=== PATIENT | female | born 2000 | race Caucasian/White ===

== ENCOUNTER 2023-07-07 15:45 | Outpatient (CLI) | payer BC ==
[2023-07-07 16:17] LABS: Appearance,Urine Clear (Clear); Bacteria,Urine Occasional /hpf; Bilirubin,Urine Negative (Negative); Blood,Urine Negative (Negative); Color,Urine Colorless; Glucose,Urine (UA) Negative (Negative); Ketones,Urine Negative (Negative); Leukocyte Esterase,Urine Moderate (Negative); Nitrite,Urine Negative (Negative); Protein,Urine Negative (Negative); RBC,Urine 2 /hpf (0-5); Specific Gravity,Urine 1.002 (1.001-1.035); Squamous Epithelial Cell,Urine 3 /hpf (0-4); Urobilinogen,Urine <2.0 mg/dL (<2.0); WBC,Urine 6 /hpf (0-5)
[2023-07-07 16:18] LABS: Basophils % (A) 0 %; Eosinophils # (A) 0.1 k/uL (0-0.7); Eosinophils % (A) 1 %; HCT 36.3 % (34.0-46.0); HGB 12.3 gm/dL (11.4-16.0); Lymphocytes # (A) 1.5 k/uL (1.0-4.8); Lymphocytes % (A) 13 %; MCH 32.8 pg (25.0-35.0); MCV 96.7 fL (80.0-100.0); Mean Platelet Volume 10.1; Monocytes # (A) 0.6 k/uL (0-1.0); Monocytes % (A) 5 %; Neutrophils # (A) 9.1 k/uL (1.3-7.7); Neutrophils % (A) 80 %; Platelet Count 185 k/uL (150-450); RBC 3.76 m/uL (3.80-5.40); RDW 12.4 % (11.5-15.5); WBC 11.4 k/uL (3.8-10.6)
[2023-07-07 16:39] LABS: ALT 22 U/L (4-34); AST 29 U/L (14-36); African American GFR (CKD) >90 (>60 ml/min/1.73 sqM); Blood Urea Nitrogen 8 mg/dL (7-17); LDH 234 U/L (120-246); Non-African American GFR(CKD) >90 (>60 ml/min/1.73 sqM); Uric Acid 3.4 mg/dL (3.7-7.4)
[2023-07-07 16:50] LABS: Protein/Creatinine Ratio,Urine 1.556
[2023-07-07 17:29] VITALS: BP 132/83; PULSE 99; RESP 16; TEMP 98.2
--- NOTE | 2023-07-08 06:37 | P.MSEPDOC ---
Presenting Problems - Arrival Data Date of Arrival on Unit: 07/07/23 Time of Arrival on Unit: 14:52 Mode of Transport: Ambulatory - Complaint OB-Reason for Admission/Chief Complaint: PIH Medical History - Information : 1 Para: 0 Number of Living Children: 0 - Gestational Age Gestational Age by STEPHEN (wks/days): 35 Weeks and 4 Days Review of Systems - Review of Systems Constitutional: No problems Breast: No problems ENT: No problems Cardiovascular: No problems Respiratory: No problems Gastrointestinal: No problems Genitourinary: No problems Musculoskeletal: No problems Neurological: No problems Skin: No problems Vital Signs - Temperature Temperature: 98.2 F Temperature Source: Oral - Pulse Right Sitting Brachial Pulse Rate: 99 Pulse Assessment Method: Automatic Cuff - Respirations Respiratory Rate: 16 Oxygen Delivery Method: Room Air O2 Sat by Pulse Oximetry: 99 - Blood Pressure Right Arm Sitting Blood Pressure: 132/83 Blood Pressure Mean: 99 Blood Pressure Source: Automatic Cuff Medical Screen Scoring - Cervical Exam Dilation (cm): 0 Effacement (%): 0 - Uterine Contractions Frequency From (mins): 5 Frequency To (mins): 8 Duration From (seconds): 30 Duration To (seconds): 40 Intensity: Mild Resting: Soft to palpation - Assessment - Baby A Baseline FHR: 45 Heart Rate - NICHD Category: Category I (Normal) NST: Reactive Physician Notification - Physician Notified Physician Notified Date: 07/07/23 Physician Notified Time: 17:15 Physician: Gorge Mayes Order Received: Yes (discharge) Maternal Triage Index - Maternal Triage Index Presenting for scheduled procedure w/no complaint: No - Stat/Priority 1 Stat Priority 1: No - Urgent/Priority 2 Urgent Priority 2: No - Prompt/Priority 3 Prompt Priority 3: Yes Criteria Met for Priority 3: pt reports elevated BP at home, contx Disposition - Disposition OB Disposition: Discharge to home Discharge Date: 07/07/23 Discharge Time: 17:19 I agree with the RN Medical Screening Exam: Yes Case reviewed; plan agreed upon as documented in EMR&OBIX.: Yes Diagnosis: RELATED CONDITIONS, UNSPECIFIED, THIRD TRIMESTER (Pt presented with concerns of elevated blood pressure at home. All blood pressures here were normal. Pre-eclampsia labs were normal, however had elevated P/C ratio that does not appear to be clinically significant. Will followup with Dr. Gifford this week for OB visit and discussion/further evaluation. )
== END 2023-07-07 17:20 | disposition home or self-care (01) ==
LOC: FBPOP 15:45
PROVIDERS: ATTEND Obstetrics & Gynecology
DX: O13.3 Gestational [pregnancy-induced] hypertension without significant proteinuria, third trimester (principal); Z3A.35 35 weeks gestation of pregnancy
CPT/HCPCS: 59025; 81001; 82565; 82570; 83615; 84156; 84450; 84460; 84520; 84550; 85025; 99205

== ENCOUNTER 2023-07-31 19:35 | Outpatient (CLI) | payer BC, OTHER ==
[2023-07-31 20:00] LABS: Appearance,Urine Clear (Clear); Bilirubin,Urine Negative (Negative); Blood,Urine Negative (Negative); Color,Urine Colorless; Glucose,Urine (UA) Negative (Negative); Ketones,Urine Negative (Negative); Leukocyte Esterase,Urine Negative (Negative); Nitrite,Urine Negative (Negative); PH, Urine 6.5 (5.0-8.0); Protein,Urine Negative (Negative); Specific Gravity,Urine 1.004 (1.001-1.035); Urobilinogen,Urine <2.0 mg/dL (<2.0)
[2023-07-31 20:15] LABS: Creatinine,Urine Random 20.8 mg/dL; Protein/Creatinine Ratio,Urine 0.625
[2023-07-31 20:28] LABS: Basophils % (A) 0 %; Eosinophils # (A) 0.1 k/uL (0-0.7); Eosinophils % (A) 1 %; HGB 12.6 gm/dL (11.4-16.0); Lymphocytes # (A) 1.5 k/uL (1.0-4.8); Lymphocytes % (A) 13 %; MCH 33.4 pg (25.0-35.0); MCHC 34.9 g/dL (31.0-37.0); MCV 95.7 fL (80.0-100.0); Mean Platelet Volume 9.8; Monocytes # (A) 0.5 k/uL (0-1.0); Monocytes % (A) 4 %; Neutrophils # (A) 9.4 k/uL (1.3-7.7); Neutrophils % (A) 81 %; Platelet Count 162 k/uL (150-450); RBC 3.76 m/uL (3.80-5.40); RDW 12.2 % (11.5-15.5); WBC 11.7 k/uL (3.8-10.6)
[2023-07-31 20:38] LABS: ALT 25 U/L (4-34); AST 32 U/L (14-36); African American GFR (CKD) >90 (>60 ml/min/1.73 sqM); Blood Urea Nitrogen 8 mg/dL (7-17); LDH 216 U/L (120-246); Non-African American GFR(CKD) >90 (>60 ml/min/1.73 sqM)
[2023-07-31 23:19] VITALS: BP 146/89; PULSE 123; RESP 16; TEMP 97.5
--- NOTE | 2023-08-01 02:53 | P.MSEPDOC ---
Presenting Problems - Arrival Data Date of Arrival on Unit: 07/31/23 Time of Arrival on Unit: 19:35 Mode of Transport: Ambulatory - Complaint OB-Reason for Admission/Chief Complaint: Headache, PIH Comment: pt. present to triage due to high blood pressure at home of 161/100 at 1900. headache rating 4/10 that started a couple hours ago, and mild nausea pt. hasn't taken anyhting for pain. Medical History - Information : 1 Para: 0 Term: 0 : 0 Abortions: Spontaneous or Elective: 0 Number of Living Children: 0 - Gestational Age Gestational Age by STEPHEN (wks/days): 39 Weeks and 0 Days Review of Systems - Review of Systems Constitutional: No problems Breast: No problems ENT: No problems Cardiovascular: No problems Respiratory: No problems Gastrointestinal: No problems Genitourinary: No problems Musculoskeletal: No problems Neurological: No problems Skin: No problems Vital Signs - Temperature Temperature: 97.5 F Temperature Source: Temporal Artery Scan - Pulse Pulse Oximetery Pulse Rate: 123 Pulse Assessment Method: Pulse Oximetry - Respirations Respiratory Rate: 16 Oxygen Delivery Method: Room Air O2 Sat by Pulse Oximetry: 100 - Blood Pressure Right Arm Blood Pressure: 146/89 Blood Pressure Mean: 108 Blood Pressure Source: Automatic Cuff Medical Screen Scoring - Cervical Exam Membranes: Intact - Uterine Contractions Frequency From (mins): 3 Frequency To (mins): 5 Duration From (seconds): 30 Duration To (seconds): 60 Intensity: Mild - Assessment - Baby A Baseline FHR: 130 Heart Rate - NICHD Category: Category I (Normal) NST: Reactive Physician Notification - Physician Notified Physician Notified Date: 07/31/23 Physician Notified Time: 20:54 Physician: Dr. Gifford New Order Received: Yes - Notification Comment Comment: labs reviewed, orders to discharge pt. home. Maternal Triage Index - Maternal Triage Index Presenting for scheduled procedure w/no complaint: No - Stat/Priority 1 Stat Priority 1: No - Urgent/Priority 2 Urgent Priority 2: Yes Provider Notified: Dr. Gifford Provider Notified Time: 20:01 Criteria Met for Priority 2: PIH labs ordered Disposition - Disposition OB Disposition: Discharge to home Discharge Date: 07/31/23 Discharge Time: 21:05 I agree with the RN Medical Screening Exam: Yes Physician's MSE Comment: Patient's blood pressures were normal other than her initial blood pressure on admission is triage was slightly elevated systolically. All of her labs are n ormal and her urine protein is negative however her protein to creatinine ratio is still elevated. Patient is scheduled for induction in less than 2 days. She is advised to try Tylenol or Benadryl for her headache. If symptoms worsen, she may return to triage. Case reviewed; plan agreed upon as documented in EMR&OBIX.: Yes Diagnosis: HEADACHE, UNSPECIFIED
== END 2023-07-31 21:05 | disposition home or self-care (01) ==
LOC: FBPOP 19:35
PROVIDERS: ATTEND Obstetrics & Gynecology
DX: O13.3 Gestational [pregnancy-induced] hypertension without significant proteinuria, third trimester (principal); Z3A.39 39 weeks gestation of pregnancy
CPT/HCPCS: 36415; 59025; 81003; 82565; 82570; 83615; 84156; 84450; 84460; 84520; 84550; 85025; 99215

== ENCOUNTER 2023-08-02 05:17 | Inpatient (IN) | payer BC, OTHER ==
--- NOTE | 2023-08-01 16:13 | P.HPOB ---
History of Present Illness H&P Date: 08/01/23 Chief Complaint: Induction of labor This is a 23 y.o. female, 1, para 0, with an estimated date of confinement of 08/07/2023, estimated gestational age of 39-2/7 weeks, who presents for induction of labor. She has had 2 instances of elevated blood pressure at home with headache, once on 07/07/2023 and most recently on 07/31/2023. Each time she has presented to triage, her blood pressures have been normal and labs have been normal other than elevated protein to creatinine ratios. Urine protein was negative. She has been getting regular surveillance since the 1st episode. She also has occasional nausea. Her latest ultrasound showed estimated weight of 5#15oz at 36 weeks. She also is complaining of irregular contractions and pressure. labs: Hemoglobin-12.7 Blood type-B+ Antibody screen-neg Rubella-immune Toxoplasma-neg RPR-NR HIV-NR Hepatitis C-NR Random glucose-78 Hepatitis B surface antigen-neg 1 hr. GTT-80 GBS-neg OB Hx: Data Security Administrator Hx: No hx STDs Social Hx: . Unemployed. Review of Systems Constitutional: Denies chills, Denies fever Eyes: denies blurred vision, denies pain Ears, nose, mouth and throat: Reports headache, Denies sore throat Cardiovascular: Denies chest pain, Denies shortness of breath Respiratory: Denies cough Gastrointestinal: Reports abdominal pain (irregular contractions), Reports heartburn Genitourinary: Reports pelvic pain, Reports Musculoskeletal: Reports low back pain Integumentary: Denies pruritus, Denies rash Neurological: Denies numbness, Denies weakness Psychiatric: Reports anxiety, Reports depression Past Medical History Past Medical History: GERD/Reflux History of Any Multi-Drug Resistant Organisms: None Reported Past Surgical History: No Surgical Hx Reported Past Anesthesia/Blood Transfusion Reactions: No Reported Reaction Past Psychological History: Anxiety, Depression Smoking Status: Never smoker Past Alcohol Use History: None Reported Past Drug Use History: None Reported - Past Family History Mother Family Medical History: Cancer (Skin), Hypertension Medications and Allergies Home Medications Medication Instructions Recorded Confirmed Type Pnv 11/Iron Fum/Folic Acid/Om3 1 tab PO DAILY 07/07/23 07/31/23 History [Wesnate Dha Softgel] Allergies Allergy/AdvReac Type Severity Reaction Status Date / Time No Known Allergies Allergy Verified 07/07/23 15:50 Exam Osteopathic Statement: *. No significant issues noted on an osteopathic structural exam other than those noted in the History and Physical/Consult. Gen: well developed, well-nourished gravid female in no acute distress HEENT: within normal limits Heart: regular rate and rhythm Lungs: clear to auscultation bilaterally Abdomen: , non-tender Cervix: 1.5 cm /50%/-2 heart tones: 140's by doppler Extremities: neg. Bryan's Assessment and Plan (1) 39 weeks gestation of Status: Acute Code(s): Z3A.39 - 39 WEEKS GESTATION OF SNOMED Code(s): 90174060 Plan: Proceed with oxytocin induction of labor. Expectant management. Epidural anesthesia if desired.
[2023-08-02] MEDS ORDERED: CARBOPROST TROMETHAMINE 250 MCG/ML 1 ML AMP IM PRN (05:27)
[2023-08-02] MEDS ORDERED: LIDOCAINE 0.5% (PF) 5 MG/ML (50 ML SDV) SQ PRN (05:27)
[2023-08-02] MEDS ORDERED: miSOPROStoL 200 MCG TAB PO PRN (05:27)
[2023-08-02] MEDS ORDERED: OXYTOCIN 10 UNIT/ML 1 ML VIAL IM PRN (05:27)
[2023-08-02] MEDS ORDERED: TERBUTALINE 1 MG/ML VIAL SQ PRN (05:27)
[2023-08-02] MEDS ORDERED: OXYTOCIN 30 UNITS/500 ML NS 30 UNIT in SALINE 1 500ML.BAG IV SCH ×2 (05:27→14:30)
[2023-08-02] MEDS ORDERED: LIDOCAINE 1% (10MG/ML) FOR IV START INTRADERMA PRN (05:27)
[2023-08-02] MEDS ORDERED: METHYLERGONOVINE 0.2 MG/ML 1 ML AMP IM PRN (05:27)
[2023-08-02] MEDS ORDERED: TRANEXAMIC 1,000 MG/100ML-NACL 1,000 MG in EMPTY BAG 1 BAG IV PRN (05:27)
[2023-08-02 05:57] LABS: Basophils % (A) 0 %; Eosinophils # (A) 0.2 k/uL (0-0.7); Eosinophils % (A) 2 %; HCT 36.2 % (34.0-46.0); Lymphocytes # (A) 1.9 k/uL (1.0-4.8); Lymphocytes % (A) 22 %; MCH 34.3 pg (25.0-35.0); MCV 95.4 fL (80.0-100.0); Monocytes # (A) 0.5 k/uL (0-1.0); Monocytes % (A) 6 %; Neutrophils % (A) 69 %; Platelet Count 164 k/uL (150-450); RBC 3.79 m/uL (3.80-5.40); RDW 12.4 % (11.5-15.5); WBC 8.7 k/uL (3.8-10.6)
[2023-08-02 06:14] LABS: ALT 25 U/L (4-34); AST 32 U/L (14-36); African American GFR (CKD) >90 (>60 ml/min/1.73 sqM); Non-African American GFR(CKD) >90 (>60 ml/min/1.73 sqM); Uric Acid 4.8 mg/dL (3.7-7.4)
[2023-08-02] MEDS: LACTATED RINGERS 1,000 ML IV SCH ×3 (06:49→10:34)
[2023-08-02] MEDS ORDERED: ONDANSETRON 4 MG/2 ML VIAL IVP PRN (07:52)
[2023-08-02] MEDS ORDERED: NALBUPHINE 10 MG/ML (10 ML MDV) IV PRN (07:52)
[2023-08-02] MEDS ORDERED: diphenhydrAMINE 50 MG/ML 1 ML VIAL IVP PRN ×2 (14:27)
[2023-08-02] MEDS ORDERED: diphenhydrAMINE 50 MG CAP PO PRN (14:27)
[2023-08-02] MEDS ORDERED: SIMETHICONE 80 MG CHEWABLE PO PRN (14:27)
[2023-08-02] MEDS ORDERED: LANOLIN CREAM 5 GM TUBE TOPICAL PRN (14:27)
[2023-08-02] MEDS ORDERED: diphenhydrAMINE 25 MG CAP PO PRN (14:27)
[2023-08-02] MEDS ORDERED: BENZOCAINE/MENTHOL SPRAY 1 GM/SPRAY AEROSOL TOPICAL PRN ×2 (14:27→14:41)
[2023-08-02] MEDS ORDERED: ZOLPIDEM 5 MG TAB PO PRN (14:27)
[2023-08-02] MEDS ORDERED: HYDROCORTISONE 2.5% RECTAL CREAM 30 GM TUBE RECTAL PRN (14:27)
[2023-08-02] MEDS: IBUPROFEN 600 MG TAB PO PRN (16:35)
--- NOTE | 2023-08-02 18:06 | P.PROBDLV ---
Vaginal Delivery Note - . Vaginal Delivery Note: The patient progressed to complete dilation after oxytocin augmentation of labor and epidural anesthesia. Once reaching complete, she began pushing. She pushed for almost 2 hours and brought 's head to a crown. With one further push, the 's head delivered across the perineum followed by the anterior shoulder. Nose and mouth were bulb suctioned. With one further push, the remainder the infant easily delivered and was placed on mother's abdomen. Nose and mouth were bulb suctioned and cord was clamped and cut after waiting approximately 30 seconds for pulsation to finish. Infant was taken to warmer for evaluation. A viable female was noted with scores of 9 at 1 minute and 9 at 5 minutes and weight was 7 lbs. 4 oz. Placenta delivered shortly thereafter, intact, with a three-vessel cord. Uterus contracted fairly well after oxytocin was given and uterine massage was carried out. Inspection of the perineum revealed a second-degree with partial third-degree laceration. This area was anesthetized with 1% lidocaine and then sutured with 3-0 and 2-0 Vicryl suture in the usual multilayer fashion. Estimated blood loss is approximately 250 mL's. Mother and infant are in stable condition.
[2023-08-02 19:31] LABS: Basophils % (A) 0 %; Eosinophils # (A) 0.1 k/uL (0-0.7); Eosinophils % (A) 0 %; HCT 34.6 % (34.0-46.0); HGB 11.7 gm/dL (11.4-16.0); Lymphocytes # (A) 0.9 k/uL (1.0-4.8); Lymphocytes % (A) 6 %; MCH 32.6 pg (25.0-35.0); MCHC 33.7 g/dL (31.0-37.0); Monocytes # (A) 0.7 k/uL (0-1.0); Monocytes % (A) 5 %; Neutrophils # (A) 14.5 k/uL (1.3-7.7); Neutrophils % (A) 88 %; Platelet Count 167 k/uL (150-450); RBC 3.57 m/uL (3.80-5.40); RDW 12.7 % (11.5-15.5); WBC 16.5 k/uL (3.8-10.6)
[2023-08-02] MEDS: ACETAMINOPHEN TAB 325 MG TAB PO PRN (21:55)
[2023-08-03] MEDS: ACETAMINOPHEN TAB 325 MG TAB PO PRN ×2 (05:15→21:53)
[2023-08-03] MEDS: SENNOSIDES-DOCUSATE SODIUM 1 EACH TAB PO SCH (08:44)
--- NOTE | 2023-08-03 08:44 | P.DS ---
Providers Date of admission: 08/02/23 05:17 Expected date of discharge: 08/03/23 Attending physician: Meera Gifford Primary care physician: Stated None - Discharge Diagnosis(es) (1) 39 weeks gestation of Current Visit: No Status: Acute Hospital Course: This is a 23-year-old female 1 para 0 at 39-2/7 weeks who presented for induction of labor however she did have spontaneous rupture membranes at approximately 3:45 AM prior to admission. She delivered a viable female infant with scores of 9 at 1 minute and 9 at 5 minutes and infant weight of 7 lbs. 4 oz. on 08/02/2023. course was initially complicated by a elevated pulse and slightly elevated blood pressure immediately following delivery however she did drink a lot of caffeine. This has resolved this morning. Denies any blurry vision or epigastric pain. She does have a mild headache in her frontal sinuses area. Her pain is fairly well controlled with ibuprofen. She is breast-feeding. Lochia is decreasing. Impression is status post vaginal delivery day #1. Plan is to discharge home later today. Routine instructions are given. She is advised to call the office if she has any further questions or concerns prior to her appointment time. She is counseled regarding signs and symptoms of preeclampsia and to call the office or come to hospital immediately if any symptoms occur. She is advised follow-up in the office in 6 weeks for check. She will be given a prescription for ibuprofen. She has a breast pump. Procedures: Oxytocin augmentation of labor. Spontaneous vaginal delivery of a viable female on 08/02/2023 Patient Condition at Discharge: Stable Plan - Discharge Summary New Discharge Prescriptions: New Ibuprofen [Motrin] 600 mg PO Q6HR PRN #60 tab PRN Reason: Mild Pain (Scale 1 To 3) Continue Pnv 11/Iron Fum/Folic Acid/Om3 [Wesnate Dha Softgel] 1 tab PO DAILY Discharge Medication List Pnv 11/Iron Fum/Folic Acid/Om3 [Wesnate Dha Softgel] 1 tab PO DAILY 07/07/23 [History] Ibuprofen [Motrin] 600 mg PO Q6HR PRN #60 tab 08/03/23 [Rx] Follow up Appointment(s)/Referral(s): Meera Gifford DO [Doctor of Osteopathic Medicine] - 1 Week (PP 09-11-2023 @11:30 Am) Activity/Diet/Wound Care/Special Instructions: Instructions 1. Do not begin any exercise program for 3 weeks. 2. Do not resume sexual relations for 3 weeks or longer if uncomfortable. 3. You may take tub baths or showers at any time. 4. You may use tampons if desired after 3 weeks. 5. Keep the area of episiotomy (stitches) clean and dry. 6. If you are not nursing, wear a good fitting, supportive bra during the day and limit fluid intake for at least 1 week to prevent breast engorgement. 7. Call the office, [phone], within the next week to make appointment for your 6 week checkup if it has not already been made. 8. Report any of the following occurrences to the doctor promptly: a. Heavy, excessive bleeding b. Chills, fever c. Burning or frequency of urination d. Pain or redness and breasts if nursing e. Increasing pain or swelling in episiotomy (stitches). In addition to the above instructions, the following additional should be followed: 1. No heavy lifting or straining (exercising) until after 6 week checkup. 2. Keep abdominal incision clean and dry: You may wear a dressing if more comfortable. 3. Make office appointment for 10 days after going home or as instructed by her doctor. Discharge Disposition: HOME SELF-CARE
[2023-08-03 09:28] LABS: Basophils % (A) 0 %; Eosinophils # (A) 0.1 k/uL (0-0.7); Eosinophils % (A) 1 %; HCT 33.9 % (34.0-46.0); HGB 11.6 gm/dL (11.4-16.0); Lymphocytes # (A) 1.6 k/uL (1.0-4.8); Lymphocytes % (A) 13 %; MCH 33.6 pg (25.0-35.0); MCHC 34.1 g/dL (31.0-37.0); MCV 98.4 fL (80.0-100.0); Mean Platelet Volume 10.1; Monocytes # (A) 0.6 k/uL (0-1.0); Monocytes % (A) 5 %; Neutrophils # (A) 9.9 k/uL (1.3-7.7); Neutrophils % (A) 80 %; Platelet Count 143 k/uL (150-450); RBC 3.44 m/uL (3.80-5.40); RDW 12.9 % (11.5-15.5); WBC 12.3 k/uL (3.8-10.6)
[2023-08-03] MEDS: IBUPROFEN 600 MG TAB PO PRN ×2 (11:00→16:17)
--- NOTE | 2023-08-03 12:55 | P.PN ---
Subjective Progress Note Date: 08/03/23 Principal diagnosis: Status post vaginal delivery day #1 Patient was up in the shower and started feeling some fluttering in her heart. Vitals were taken shortly after and her heart rate was up to 130. Blood pressure was also at 140/79. Approximately 15 minutes later, her blood pressure was back down to normal and her pulse was in the 90s. She has not had any ca ffeine today and thinks that she has a headache due to lack of caffeine. She states her headache is more in the front of her head. Her bleeding has still been minimal. She states she does feel some shortness of breath when the fluttering happens. Objective - Vital Signs Vital signs: Vital Signs Temp 98.7 F 08/03/23 08:00 Pulse 130 H 08/03/23 11:11 Resp 16 08/03/23 11:11 BP 140/79 08/03/23 11:11 Pulse Ox 99 08/02/23 05:26 FiO2 Intake & Output 08/02/23 08/03/23 08/03/23 18:59 06:59 18:59 Intake Total 3186.867 Output Total 630 Balance 2556.867 Intake: IV 3000 Intake, IV Titration 186.867 Amount Oxytocin 30 Units/500 ml 186.867 Ns 30 unit In Saline 1 500ml.bag @ Per Protocol IV .Q0M [facility] Rx#:[id number] Output: Urine 250 Output, Quantitative 380 Blood Loss Other: # Voids 1 2 - Cardiovascular Details: Occasional extra beat heard Rhythm: regular - Labs CBC & Chem 7: 08/03/23 08:05 08/02/23 05:38 Labs: Abnormal Lab Results - Last 24 Hours (Table) 08/02/23 08/03/23 Range/Units 19:18 08:05 WBC 16.5 H 12.3 H (3.8-10.6) k/uL RBC 3.57 L 3.44 L (3.80-5.40) m/uL Hct 33.9 L (34.0-46.0) % Plt Count 143 L (150-450) k/uL Neutrophils # 14.5 H 9.9 H (1.3-7.7) k/uL Lymphocytes # 0.9 L (1.0-4.8) k/uL Assessment and Plan Assessment: Status post vaginal delivery day #1 Occasional tachycardia, possibly vasovagal (1) 39 weeks gestation of Current Visit: No Status: Acute Code(s): Z3A.39 - 39 WEEKS GESTATION OF SNOMED Code(s): 03190536 Plan: We'll cancel discharged for today and observe overnight. We'll repeat labs in the morning. Patient will limit caffeine but drink a little bit to see if that will help with her headache.
[2023-08-03 20:30] VITALS: RESP 16
[2023-08-03] MEDS: LABETALOL 100 MG TAB PO SCH (21:46)
[2023-08-04 01:01] VITALS: TEMP 98
[2023-08-04] MEDS: SENNOSIDES-DOCUSATE SODIUM 1 EACH TAB PO SCH ×2 (05:13→08:35)
[2023-08-04] MEDS: IBUPROFEN 600 MG TAB PO PRN (05:30)
[2023-08-04 06:55] LABS: Basophils % (A) 0 %; Eosinophils # (A) 0.1 k/uL (0-0.7); Eosinophils % (A) 1 %; Lymphocytes # (A) 1.6 k/uL (1.0-4.8); Lymphocytes % (A) 16 %; MCH 34.6 pg (25.0-35.0); MCHC 34.9 g/dL (31.0-37.0); Mean Platelet Volume 9.4; Monocytes # (A) 0.4 k/uL (0-1.0); Monocytes % (A) 4 %; Neutrophils % (A) 77 %; Platelet Count 175 k/uL (150-450); RBC 2.43 m/uL (3.80-5.40); RDW 12.7 % (11.5-15.5); WBC 10.4 k/uL (3.8-10.6)
[2023-08-04 06:56] LABS: HGB 8.4 gm/dL (11.4-16.0)
[2023-08-04 07:16] LABS: Uric Acid 4.3 mg/dL (3.7-7.4)
[2023-08-04] MEDS: ACETAMINOPHEN TAB 325 MG TAB PO PRN (08:15)
[2023-08-04] MEDS: LABETALOL 100 MG TAB PO SCH (08:15)
[2023-08-04 09:48] VITALS: BP 135/81; PULSE 110
--- NOTE | 2023-08-04 10:58 | P.DS ---
Providers Date of admission: 08/02/23 05:17 Expected date of discharge: 08/04/23 Attending physician: Meera Gifford Primary care physician: Stated None - Discharge Diagnosis(es) (1) 39 weeks gestation of Current Visit: No Status: Acute Hospital Course: This is a 23-year-old female 1 para 0 at 39-2/7 weeks who presented with spontaneous rupture of membranes on 08/02/2003 by was scheduled for induction in a few hours anyway. Upon arrival she was found to be 3 cm. She underwent oxytocin augmentation of labor and artificial rupture membranes of a 4 bag. She did receive epidural anesthesia. She delivered vaginally a viable female with scores of 9 at 1 minute and 9 at 5 minutes and infant weight of 7 lbs. 4 oz. on 08/02/2023. She did have a partial third-degree tear. Her course was complicated by a few episodes of tachycardia into the 130s to 140s with mildly elevated blood pressures. She also did have a mild headache and still does have a mild headache. She also is complaining of some swelling in her lower extremities. Her blood work initially was showing minimal decrease in her hemoglobin however on day #2 her hemoglobin read 8.4. Her bleeding has still been very minimal. All other labs are essentially within normal limits. She is breast-feeding. Her lochia has actually been decreasing quite significantly. She was started on labetalol 100 mg twice a day last night when her blood pressures were noted to be in the 140s over 90s. This has improved her blood pressures. Patient would like to go home today. Vital signs are otherwise stable. Abdomen is soft with fundus firm and nontender. Perineum appears intact. Extremities show 1+ pitting edema in her feet. Impression is status post vaginal delivery day #2, gestational hypertension . Plan is to discharge home today. She will continue on labetalol 100 mg twice a day. She is advised follow-up in the office in approximately 1 week for a and postoperative check. She is advised to call the office or return to the hospital if any severe symptoms such as severe headache, blurry vision, epigastric pain, excessive bleeding. She has ibuprofen at home. She will continue to breast-feed. Routine instructions are given. Procedures: Oxytocin augmentation of labor Spontaneous vaginal delivery of a viable female on 08/02/2023 Patient Condition at Discharge: Stable Plan - Discharge Summary New Discharge Prescriptions: New Ibuprofen [Motrin] 600 mg PO Q6HR PRN #60 tab PRN Reason: Mild Pain (Scale 1 To 3) Labetalol [Trandate] 100 mg PO BID #28 tab Continue Pnv 11/Iron Fum/Folic Acid/Om3 [Wesnate Dha Softgel] 1 tab PO DAILY Discharge Medication List Pnv 11/Iron Fum/Folic Acid/Om3 [Wesnate Dha Softgel] 1 tab PO DAILY 07/07/23 [History] Ibuprofen [Motrin] 600 mg PO Q6HR PRN #60 tab 08/03/23 [Rx] Labetalol [Trandate] 100 mg PO BID #28 tab 08/04/23 [Rx] Follow up Appointment(s)/Referral(s): Meera Gifford DO [Doctor of Osteopathic Medicine] - 1 Week (PP 09-11-2023 @11:30 Am Call the office for 1 week blood pressure check appointment.) Activity/Diet/Wound Care/Special Instructions: Instructions 1. Do not begin any exercise program for 3 weeks. 2. Do not resume sexual relations for 3 weeks or longer if uncomfortable. 3. You may take tub baths or showers at any time. 4. You may use tampons if desired after 3 weeks. 5. Keep the area of episiotomy (stitches) clean and dry. 6. If you are not nursing, wear a good fitting, supportive bra during the day and limit fluid intake for at least 1 week to prevent breast engorgement. 7. Call the office, [phone], within the next week to make appointment for your 6 week checkup if it has not already been made. 8. Report any of the following occurrences to the doctor promptly: a. Heavy, excessive bleeding b. Chills, fever c. Burning or frequency of urination d. Pain or redness and breasts if nursing e. Increasing pain or swelling in episiotomy (stitches). In addition to the above instructions, the following additional should be followed: 1. No heavy lifting or straining (exercising) until after 6 week checkup. 2. Keep abdominal incision clean and dry: You may wear a dressing if more comfortable. 3. Make office appointment for 10 days after going home or as instructed by her doctor. Discharge Disposition: HOME SELF-CARE
== END 2023-08-04 12:02 | disposition home or self-care (01) | DRG 768 ==
LOC: 4FBP 05:17
PROVIDERS: ADMIT Obstetrics & Gynecology; ATTEND Obstetrics & Gynecology
PROC: 10E0XZZ Delivery of Products of Conception, External Approach (ICD-10-PCS; principal; 2023-08-02)
PROC: 0DQR0ZZ Repair Anal Sphincter, Open Approach (ICD-10-PCS; principal; 2023-08-02)
PROC: 3E033VJ Introduction of Other Hormone into Peripheral Vein, Percutaneous Approach (ICD-10-PCS; 2023-08-02)
DX: O70.20 Third degree perineal laceration during delivery, unspecified (principal); Z37.0 Single live birth; K21.9 Gastro-esophageal reflux disease without esophagitis; Z28.310 Unvaccinated for COVID-19; O13.5 Gestational [pregnancy-induced] hypertension without significant proteinuria, complicating the puerperium; O99.62 Diseases of the digestive system complicating childbirth; Z3A.39 39 weeks gestation of pregnancy; Z79.899 Other long term (current) drug therapy
CPT/HCPCS: 82565; 83615; 84450; 84460; 84550; 85025; 86850; 86900; 86901

== ENCOUNTER 2023-08-06 10:50 | Inpatient (IN) | payer BC, OTHER ==
[2023-08-06 12:17] LABS: ALT 52 U/L (4-34); AST 59 U/L (14-36); African American GFR (CKD) >90 (>60 ml/min/1.73 sqM); Blood Urea Nitrogen 11 mg/dL (7-17); LDH 320 U/L (120-246); Non-African American GFR(CKD) >90 (>60 ml/min/1.73 sqM); Uric Acid 4.9 mg/dL (3.7-7.4)
[2023-08-06 12:19] LABS: Creatinine,Urine Random 22.3 mg/dL; Protein/Creatinine Ratio,Urine 0.628
[2023-08-06 12:26] LABS: Basophils % (A) 0 %; Eosinophils # (A) 0.2 k/uL (0-0.7); Eosinophils % (A) 2 %; HCT 34.1 % (34.0-46.0); Lymphocytes # (A) 0.9 k/uL (1.0-4.8); Lymphocytes % (A) 9 %; MCH 33.2 pg (25.0-35.0); MCHC 33.7 g/dL (31.0-37.0); MCV 98.7 fL (80.0-100.0); Mean Platelet Volume 8.3; Monocytes # (A) 0.3 k/uL (0-1.0); Monocytes % (A) 3 %; Neutrophils # (A) 8.5 k/uL (1.3-7.7); Neutrophils % (A) 84 %; Platelet Count 220 k/uL (150-450); RBC 3.45 m/uL (3.80-5.40); RDW 12.8 % (11.5-15.5); WBC 10.1 k/uL (3.8-10.6)
[2023-08-06 12:31] LABS: HGB 11.5 gm/dL (11.4-16.0)
[2023-08-06] MEDS ORDERED: MAGNESIUM SULFATE-WATER PMX 4 GM in WATER FOR INJECTION 1 100ML.BAG IVPB ONE (12:42)
[2023-08-06 12:44] LABS: Appearance,Urine Clear (Clear); Bilirubin,Urine Negative (Negative); Color,Urine Light Yellow; Glucose,Urine (UA) Negative (Negative); Ketones,Urine Negative (Negative); PH, Urine 6.5 (5.0-8.0); Protein,Urine Negative (Negative); Specific Gravity,Urine 1.004 (1.001-1.035)
[2023-08-06 12:45] LABS: Blood,Urine Negative (Negative); Leukocyte Esterase,Urine Negative (Negative); Nitrite,Urine Negative (Negative); Urobilinogen,Urine <2.0 mg/dL (<2.0)
[2023-08-06] MEDS: LACTATED RINGERS 1,000 ML IV SCH (13:13)
[2023-08-06] MEDS: MAGNESIUM SULFATE-WATER PMX 20 GM in WATER FOR INJECTION 1 500ML.BAG IV SCH ×2 (13:43→22:10)
[2023-08-06] MEDS: IBUPROFEN 600 MG TAB PO PRN (14:40)
--- NOTE | 2023-08-06 17:40 | P.HPOB ---
History of Present Illness H&P Date: 08/06/23 Chief Complaint: Elevated blood pressure This is a 23-year-old female 1 para 1 who delivered vaginally on 08/02/2023. She was watched for 2 days . She did have some elevated pulse immediately after delivery and mildly elevated blood pressures on day #2. She was started on labetalol 100 mg twice a day but did control her blood pressures prior to discharge. She states a couple hours before she is due to have her medication she feels pressure in her head and some pulsation in her ears. She checked her blood pressure this morning and it was 167/76. She then took her blood pressure medication after that. She called the office and was advised to come to the hospital. She states she denies any new headaches but just the same dull ache in the back of her neck that she has had ever since she was in the hospital earlier. She denies any increased swelling. She denies any blurry vision or epigastric pain. Labs showed slightly elevated liver enzymes that were higher than when she was in the hospital earlier. Also her PC ratio was elevated at 0.628. Obstetrical history: . History of 1 vaginal delivery on 08/02/2023 Review of Systems Constitutional: Denies chills, Denies fever Eyes: denies blurred vision, denies pain Ears, nose, mouth and throat: Reports headache (Mild headache in the back of her neck.) Cardiovascular: Denies chest pain, Denies shortness of breath Respiratory: Denies cough Gastrointestinal: Denies abdominal pain, Denies diarrhea, Denies nausea, Denies vomiting Genitourinary: Denies abnormal vaginal bleeding, Denies dysuria, Denies Musculoskeletal: Denies myalgias Integumentary: Denies pruritus, Denies rash Neurological: Denies numbness, Denies weakness Psychiatric: Reports anxiety Endocrine: Reports palpitations (Occasional) Past Medical History Past Medical History: GERD/Reflux History of Any Multi-Drug Resistant Organisms: None Reported Past Surgical History: No Surgical Hx Reported Past Anesthesia/Blood Transfusion Reactions: No Reported Reaction Past Psychological History: Anxiety Smoking Status: Never smoker Past Alcohol Use History: None Reported Past Drug Use History: None Reported - Past Family History Mother Family Medical History: Cancer, Hypertension Medications and Allergies Home Medications Medication Instructions Recorded Confirmed Type Pnv 11/Iron Fum/Folic Acid/Om3 1 tab PO DAILY 07/07/23 08/06/23 History [Wesnate Dha Softgel] Ibuprofen [Motrin] 600 mg PO Q6HR PRN #60 tab 08/03/23 08/06/23 Rx Labetalol [Trandate] 100 mg PO BID #28 tab 08/04/23 08/06/23 Rx Allergies Allergy/AdvReac Type Severity Reaction Status Date / Time No Known Allergies Allergy Verified 07/07/23 15:50 Exam Osteopathic Statement: *. No significant issues noted on an osteopathic structural exam other than those noted in the History and Physical/Consult. Vital Signs Temp Pulse Resp BP Pulse Ox 08/06/23 17:21 100 16 145/91 100 08/06/23 16:27 103 H 16 131/84 100 08/06/23 15:22 100 16 140/87 100 08/06/23 14:27 104 H 16 150/95 99 08/06/23 13:57 98 16 145/96 99 08/06/23 13:27 104 H 16 152/94 08/06/23 13:15 97.5 F L 98 16 155/96 Intake and Output 08/06/23 08/06/23 08/06/23 06:59 14:59 22:59 Intake Total 125 465 Output Total 2049 Balance 125 -1585 Intake: Intake, IV Titration 125 225 Amount Lactated Ringers 1,000 ml 25 75 @ 20 mls/hr IV .Q24H [facility] Rx#:[id number] Magnesium Sulfate-Water 150 Pmx 20 gm In Water For Injection 1 500ml.bag @ 2 GM/HR 50 mls/hr IV .Q10H [facility] Rx#:[id number] Magnesium Sulfate-Water 100 Pmx 4 gm In Water For Injection 1 100ml.bag @ 300 mls/hr IVPB ONCE ONE Rx#:[id number] Oral 240 Output: Urine 2049 Other: # Voids 1 Weight 65.317 kg Gen.: Well-developed well-nourished female in no acute distress HEENT: Within normal limits Heart: Regular rate and rhythm Lungs: Clear to auscultation bilaterally Abdomen: Soft, fundus firm and nontender Extremities: Negative Homans, deep tendon reflexes are 3+ over 4 bilaterally Results Result Diagrams: 08/06/23 11:54 12/05/23 11:54 Abnormal Lab Results - Last 24 Hours (Table) 08/06/23 08/06/23 Range/Units 11:54 11:54 RBC 3.45 L (3.80-5.40) m/uL Neutrophils # 8.5 H (1.3-7.7) k/uL Lymphocytes # 0.9 L (1.0-4.8) k/uL AST 59 H (14-36) U/L ALT 52 H (4-34) U/L Lactate Dehydrogenase 320 H (120-246) U/L Assessment and Plan (1) Pre-eclampsia in period Current Visit: Yes Status: Acute Code(s): O14.95 - UNSPECIFIED PRE- ECLAMPSIA, COMPLICATING THE PUERPERIUM SNOMED Code(s): 968311749 Plan: Will admit for magnesium sulfate seizure prophylaxis. Will continue labetalol 100 mg twice a day. Patient will work on breast-feeding.
[2023-08-06] MEDS: FERROUS SULFATE 325 MG TAB PO SCH (19:04)
[2023-08-06] MEDS ORDERED: ACETAMINOPHEN TAB 500 MG TAB PO PRN (19:08)
[2023-08-06] MEDS: LABETALOL 100 MG TAB PO SCH (20:25)
[2023-08-06] MEDS: PRENATAL VIT-IRON-FOLIC ACID 1 EACH TABLET PO SCH (20:25)
[2023-08-07] MEDS: IBUPROFEN 600 MG TAB PO PRN ×3 (00:09→16:37)
[2023-08-07] MEDS: FERROUS SULFATE 325 MG TAB PO SCH ×2 (07:38→16:37)
[2023-08-07] MEDS: MAGNESIUM SULFATE-WATER PMX 20 GM in WATER FOR INJECTION 1 500ML.BAG IV SCH (07:46)
[2023-08-07] MEDS: LABETALOL 100 MG TAB PO SCH ×2 (09:13→20:53)
--- NOTE | 2023-08-07 09:31 | P.PN ---
Progress Note - Text Progress Note Date: 08/07/23 Patient states she does have some blurry vision on the magnesium. She denies any headache or epigastric pain. She states her bleeding has decreased. Her pain is fairly well controlled. She has been diuresing quite a bit. Vital signs are stable with blood pressures in normal range. Abdomen soft with fundus firm and nontender. Extremities show negative Homans. Impression is status post vaginal delivery day #5, preeclampsia-on magnesium sulfate seizure prophylaxis. Plan is to just continue magnesium sulfate at about noon today. We'll continue to monitor blood pressures until the evening. If stable, may be old be discharged home. If labile, may monitor through the night until morning.
[2023-08-07] MEDS: LACTATED RINGERS 1,000 ML IV SCH (13:02)
[2023-08-07] MEDS ORDERED: LABETALOL 100 MG TAB PO STA (17:15)
--- NOTE | 2023-08-07 17:23 | P.PN ---
Progress Note - Text Progress Note Date: 08/07/23 Patient states she did have a mild headache in the lower part of her neck this evening. She still has slight blurry vision after stopping the mag but much better than on the magnesium. She is anxious because she is worried that she won't be able to take care of her baby. She did recently take some Motrin. Her blood pressure is elevated at 150/99 currently. She is still urinating quite a bit. At a long discussion with the patient and her family and we have decided to continue monitoring blood pressures through the night tonight. I will give a dose of labetalol 100 mg now and then her second dose at 9 PM as scheduled. I will increase her morning dose to 200 mg twice a day. All of her questions were answered. We'll continue to observe tonight.
[2023-08-07] MEDS: SENNOSIDES-DOCUSATE SODIUM 1 EACH TAB PO SCH (21:00)
[2023-08-07] MEDS: PRENATAL VIT-IRON-FOLIC ACID 1 EACH TABLET PO SCH ×2 (22:09→23:51)
[2023-08-08] MEDS ORDERED: LABETALOL 200 MG TAB PO SCH (09:00)
[2023-08-08] MEDS: FERROUS SULFATE 325 MG TAB PO SCH (09:11)
[2023-08-08] MEDS: SENNOSIDES-DOCUSATE SODIUM 1 EACH TAB PO SCH (09:12)
--- NOTE | 2023-08-08 09:34 | P.DS ---
Providers Date of admission: 08/06/23 12:47 Expected date of discharge: 08/08/23 Attending physician: Meera Gifford Primary care physician: Stated None - Discharge Diagnosis(es) (1) Pre-eclampsia in period Current Visit: Yes Status: Acute Hospital Course: This is a 23-year-old female 1 para 1 who is status post vaginal delivery approximately 5 days on admission who presented with elevated blood pressures at home. She was already on labetalol 100 mg twice a day but started having blood pressures in the 160s over 100s. She also had a mild headache on arrival. She was started on magnesium sulfates seizure prophylaxis for 24 hours was discontinued. Was continued on labetalol 100 mg twice a day but this was increased to 200 mg twice a day last night. Her blood pressures have improved. She does also feel she is having some anxiety symptoms especially regarding breast-feeding. She denies any thoughts of harm to self or others. She has been on medication in the past for anxiety. She is willing to start something for this also. Her blood pressures were actually in the lower side through the night but up to 140/90 this morning. She will be continued on labetalol 200 mg twice a day on discharge. She will also be started on Zoloft 25 mg at bedtime for anxiety symptoms. She will follow up in the office on Saturday for a blood pressure check. Is advised to call the office if she has any further questions or concerns prior to her appointment time. Impression is gestational hypertension/preeclampsia and anxiety. Procedures: Magnesium sulfates seizure prophylaxis Patient Condition at Discharge: Stable Plan - Discharge Summary New Discharge Prescriptions: New Labetalol [Trandate] 200 mg PO BID tab Sertraline [Zoloft] 25 mg PO DAILY #30 tablet Continue Pnv 11/Iron Fum/Folic Acid/Om3 [Wesnate Dha Softgel] 1 tab PO DAILY Discontinued Labetalol [Trandate] 100 mg PO BID #28 tab No Action Ibuprofen [Motrin] 600 mg PO Q6HR PRN #60 tab PRN Reason: Mild Pain (Scale 1 To 3) Discharge Medication List Pnv 11/Iron Fum/Folic Acid/Om3 [Wesnate Dha Softgel] 1 tab PO DAILY 07/07/23 [History] Ibuprofen [Motrin] 600 mg PO Q6HR PRN #60 tab 08/03/23 [Rx] Labetalol [Trandate] 200 mg PO BID tab 08/08/23 [Rx] Sertraline [Zoloft] 25 mg PO DAILY #30 tablet 08/08/23 [Rx] Follow up Appointment(s)/Referral(s): Meera Gifford DO [Doctor of Osteopathic Medicine] - 08/12/23 Patient Instructions/Handouts: Preeclampsia and Eclampsia After Delivery (GEN) Activity/Diet/Wound Care/Special Instructions: Instructions 1. Do not begin any exercise program for 3 weeks. 2. Do not resume sexual relations for 3 weeks or longer if uncomfortable. 3. You may take tub baths or showers at any time. 4. You may use tampons if desired after 3 weeks. 5. Keep the area of episiotomy (stitches) clean and dry. 6. If you are not nursing, wear a good fitting, supportive bra during the day and limit fluid intake for at least 1 week to prevent breast engorgement. 7. Call the office, [phone], within the next week to make appointment for your 6 week checkup if it has not already been made. 8. Report any of the following occurrences to the doctor promptly: a. Heavy, excessive bleeding b. Chills, fever c. Burning or frequency of urination d. Pain or redness and breasts if nursing e. Increasing pain or swelling in episiotomy (stitches). In addition to the above instructions, the following additional should be followed: 1. No heavy lifting or straining (exercising) until after 6 week checkup. 2. Keep abdominal incision clean and dry: You may wear a dressing if more comfortable. 3. Make office appointment for 10 days after going home or as instructed by her doctor. Discharge Disposition: HOME SELF-CARE
[2023-08-08 09:49] VITALS: BP 146/93; PULSE 76; RESP 17; TEMP 98.4
== END 2023-08-08 10:30 | disposition home or self-care (01) | DRG 776 ==
LOC: FBPOP 10:50 → 4FBP 12:47
PROVIDERS: ADMIT Obstetrics & Gynecology; ATTEND Obstetrics & Gynecology
DX: O14.95 Unspecified pre-eclampsia, complicating the puerperium (principal); F41.9 Anxiety disorder, unspecified; O99.345 Other mental disorders complicating the puerperium; O99.63 Diseases of the digestive system complicating the puerperium; K21.9 Gastro-esophageal reflux disease without esophagitis
CPT/HCPCS: 81003; 82565; 82570; 83615; 84156; 84450; 84460; 84520; 84550; 85025; 99215

== ENCOUNTER 2024-03-12 18:43 | Emergency (ER) | payer BC, OTHER ==
[2024-03-12 19:01] VITALS: RESP 18; TEMP 98.8
[2024-03-12 19:42] LABS: Basophils % (A) 0 %; Eosinophils # (A) 0.1 k/uL (0-0.7); Eosinophils % (A) 1 %; HCT 41.7 % (34.0-46.0); HGB 13.8 gm/dL (11.4-16.0); Lymphocytes # (A) 1.1 k/uL (1.0-4.8); Lymphocytes % (A) 16 %; MCH 32.1 pg (25.0-35.0); MCV 97.3 fL (80.0-100.0); Mean Platelet Volume 8.3; Monocytes # (A) 0.3 k/uL (0-1.0); Monocytes % (A) 4 %; Neutrophils # (A) 5.4 k/uL (1.3-7.7); Neutrophils % (A) 78 %; Platelet Count 232 k/uL (150-450); RBC 4.29 m/uL (3.80-5.40); RDW 11.9 % (11.5-15.5); WBC 6.9 k/uL (3.8-10.6)
[2024-03-12 19:44] LABS: Appearance,Urine Clear (Clear); Bilirubin,Urine Negative (Negative); Blood,Urine Negative (Negative); Color,Urine Colorless; Glucose,Urine (UA) Negative (Negative); Ketones,Urine 2+ (Negative); Leukocyte Esterase,Urine Negative (Negative); Nitrite,Urine Negative (Negative); PH, Urine 5.5 (5.0-8.0); Protein,Urine Negative (Negative); Specific Gravity,Urine 1.009 (1.001-1.035); Urobilinogen,Urine <2.0 mg/dL (<2.0)
[2024-03-12 19:54] LABS: Amphetamine Screen,Urine Not Detected (NotDetected); Barbiturate Screen,Urine Not Detected (NotDetected); Benzodiazepines Screen,Urine Not Detected (NotDetected); Cocaine Screen,Urine Not Detected (NotDetected); Methadone Screen, Urine Not Detected (NotDetected); Opiate Screen,Urine Not Detected (NotDetected); Oxycodone Screen, Urine Not Detected (NotDetected); Phencyclidine Screen,Urine Not Detected (NotDetected); Tricyclic Antidepressant,Urine Not Detected (NotDetected); Urn Cannabinoid Scrn Not Detected (NotDetected)
--- NOTE | 2024-03-12 19:55 | XR ---
EXAMINATION TYPE: XR chest 2V DATE OF EXAM: 03/12/2024 7:45 PM CLINICAL INDICATION:Female, 23 years old with history of dysrhythmia; [facility] COMPARISON: None TECHNIQUE: XR chest 2V Frontal view of the chest. FINDINGS: Lungs/Pleura: There is no evidence of pleural effusion, focal consolidation, or pneumothorax. Pulmonary vascularity: Unremarkable. Heart/mediastinum: Cardiomediastinal silhouette is unremarkable. Musculoskeletal: No acute osseous pathology. Mild scoliosis changes. IMPRESSION: No acute cardiopulmonary disease/process.
[2024-03-12 19:56] LABS: INR 1.1 (<1.2); Partial Thromboplastin Time 25.8 sec (22.0-30.0); Prothrombin Time 11.6 sec (10.0-12.5)
[2024-03-12 19:59] LABS: ALT 13 U/L (4-34); AST 22 U/L (14-36); African American GFR (CKD) >90 (>60 ml/min/1.73 sqM); Albumin 4.8 g/dL (3.5-5.0); Alkaline Phosphatase 48 U/L (38-126); Anion Gap 10 mmol/L; Blood Urea Nitrogen 10 mg/dL (7-17); Calcium 9.6 mg/dL (8.4-10.2); Carbon Dioxide 20 mmol/L (22-30); Chloride 108 mmol/L (98-107); Glucose 100 mg/dL (74-99); Magnesium 2.1 mg/dL (1.6-2.3); Non-African American GFR(CKD) >90 (>60 ml/min/1.73 sqM); Potassium 3.8 mmol/L (3.5-5.1); Sodium 138 mmol/L (137-145); Total Protein 7.6 g/dL (6.3-8.2)
--- NOTE | 2024-03-12 20:18 | ED ---
Arrhythmia/Palpitations HPI - General Source: patient Mode of arrival: ambulatory Limitations: no limitations <Kendrick Arriola - Last Filed: 03/12/24 20:18> <Jonny Meza - Last Filed: 03/12/24 22:59> - General Chief Complaint: Arrhythmia/Palpitations Stated Complaint: rib pain, anxiety Time Seen by Provider: 03/12/24 20:18 - History of Present Illness Initial Comments: 23-year-old female presenting with chief complaint of palpitations. Symptoms started today. She has also been having some pain to the inferior border of the ribs and sternum. Denies injury or trauma. No lower extremity swelling, recent travel, or recent surgery. (Kendrick Arriola) 23-year-old female who is otherwise healthy presenting with chief complaint of palpitations racing heart sensation. She has minor chest discomfort right posterior chest. No previous history of CAD no history of DVT or PE. Patient not on blood thinners. She admits to being quite active today outside most of the day followed by a [place]. Uncertain if the caffeine and exertion was the cause of her palpitations. (Jonny Meza) - Related Data Home Medications Medication Instructions Recorded Confirmed Pnv 11/Iron Fum/Folic Acid/Om3 1 tab PO DAILY 07/07/23 08/06/23 [Wesnate Dha Softgel] Previous Rx's Medication Instructions Recorded Ibuprofen [Motrin] 600 mg PO Q6HR PRN #60 tab 08/03/23 Labetalol [Trandate] 200 mg PO BID tab 08/08/23 Sertraline [Zoloft] 25 mg PO DAILY #30 tablet 08/08/23 Allergies Allergy/AdvReac Type Severity Reaction Status Date / Time No Known Allergies Allergy Verified 03/12/24 19:01 Review of Systems ROS Other: All systems not noted in ROS Statement are negative. <Kendrick Arriola - Last Filed: 03/12/24 20:18> ROS Other: All systems not noted in ROS Statement are negative. <Jonny Meza - Last Filed: 03/12/24 22:59> ROS Statement: Those systems with pertinent positive or pertinent negative responses have been documented in the HPI. Past Medical History Past Medical History: Chest Pain / Angina, GERD/Reflux Additional Past Medical History / Comment(s): Pre-eclampsia, heart palpitations, History of Any Multi-Drug Resistant Organisms: None Reported Past Surgical History: No Surgical Hx Reported Past Anesthesia/Blood Transfusion Reactions: No Reported Reaction Past Psychological History: Anxiety Smoking Status: Never smoker Past Alcohol Use History: None Reported Past Drug Use History: None Reported - Past Family History Mother Family Medical History: Cancer, Hypertension <Kendrick Arriola - Last Filed: 03/12/24 20:18> General Exam Limitations: no limitations <Kendrick Arriola - Last Filed: 03/12/24 20:18> General appearance: alert, in no apparent distress Head exam: Present: atraumatic, normocephalic Eye exam: Present: normal appearance, PERRL ENT exam: Present: normal exam Neck exam: Present: normal inspection. Absent: tenderness, meningismus Respiratory exam: Present: normal lung sounds bilaterally. Absent: respiratory distress, wheezes Cardiovascular Exam: Present: normal rhythm, tachycardia GI/Abdominal exam: Present: soft. Absent: distended, tenderness, guarding, rebound Extremities exam: Present: normal inspection, normal capillary refill. Absent: pedal edema, calf tenderness Neurological exam: Present: alert, oriented X3 Skin exam: Present: warm, dry, intact <DerrickJonny Harmon - Last Filed: 03/12/24 22:59> - General Exam Comments Initial Comments: Visual Physical Exam Vital signs reviewed General: Well-appearing, nontoxic, no acute distress. Head: Normocephalic, atraumatic Eyes: PERRLA, EOMI ENT: Airway patent Chest: Nonlabored breathing Skin: No visual rash, normal skin tone Neuro: Alert and oriented 3 Musculoskeletal: No gross abnormalities (Kendrick Arriola) Course Vital Signs 03/12/24 03/12/24 03/12/24 18:52 21:01 21:11 Temperature 98.8 F Pulse Rate 131 H 112 H Pulse Rate [ 126 H Left Sitting Radial] Respiratory 18 18 Rate Blood Pressure 138/69 137/83 O2 Sat by Pulse 100 100 Oximetry Medical Decision Making - Lab Data Result diagrams: 03/12/24 19:11 03/12/24 19:11 <Kendrick Arriola - Last Filed: 03/12/24 20:18> - Lab Data Result diagrams: 03/12/24 19:11 03/12/24 19:11 <Jonny Meza N - Last Filed: 03/12/24 22:59> - Medical Decision Making I performed the quick note portion of this visit, electronically signed Kendrick Arriola PA-C (Kendrick Arriola) Was pt. sent in by a medical professional or institution ([facility], [facility], urgent care, hospital, or group home...) When possible be specific @ -No Did you speak to anyone other than the patient for history (EMS, parent, family, police, friend...)? What history was obtained from this source @ -No Did you review nursing and triage notes (agree or disagree)? Why? @ -I reviewed and agree with nursing and triage notes Were old charts reviewed (outside hosp., previous admission, EMS record, old EKG, old radiological studies, urgent care reports/EKG's, group home records)? Report findings @ -No old charts were reviewed Differential Palpitations Ventricular arrhythmias, atrial arrhythmias, myocardial infarction, anemia, thyrotoxicosis, electrolyte imbalance, hypokalemia, pulmonary embolism, pulmonary disease, drugs, alcohol, anxiety, stress.... This is not meant to be an all-inclusive list. EKG interpreted by me (3pts min.). @ -[EKG: Sinus tachycardia rate of 127, MA interval 96, QRS duration 93, QTc [address] segment elevation. X-rays interpreted by me (1pt min.). @Chest x-ray negative for acute cardiopulmonary findings CT interpreted by me (1pt min.). @ -None done U/S interpreted by me (1pt. min.). @ -ReSound of the gallbladder is negative for acute cholecystitis, showing mild right hydronephrosis What testing was considered but not performed or refused? (CT, X-rays, U/S, labs)? Why? @ -None What meds were considered but not given or refused? Why? @ -None Did you discuss the management of the patient with other professionals (professionals i.e. [facility], [facility], lab, RT, psych nurse, family welfare social work professor, electronics department manager, teacher, staff mine warfare officer, cyanide case hardener)? Give summary @ -No Was smoking cessation discussed for >3mins.? @ -No Was critical care preformed (if so, how long)? @ -No Were there social determinants of health that impacted care today? How? (Homelessness, low income, unemployed, alcoholism, drug addiction, tr ansportation, low edu. Level, literacy, decrease access to med. care, detention, rehab)? @ -No Was there de-escalation of care discussed even if they declined (Discuss DNR or withdrawal of care, Hospice)? DNR status @ -No What co-morbidities impacted this encounter? (DM, HTN, Smoking, COPD, CAD, Cancer, CVA, ARF, Chemo, Hep., AIDS, mental health diagnosis, sleep apnea, morbid obesity)? @ -None Was patient admitted / discharged? Hospital course, mention meds given and route, prescriptions, significant lab abnormalities, going to OR and other pertinent info. @ -[23-year-old female with palpitations. Workup is initiated including EKG, chest x-ray, laboratory testing. Patient has normal CBC, normal CMP, negative D-dimer, negative troponin she is not . She has 2+ ketones in her urine this does suggest a degree of dehydration. She is given IV fluids in the emergency department. On reevaluation the patient had developed some right upper quadrant abdominal pain and ultrasound was performed which was negative for acute cholecystitis. Patient's heart rate improves while in the emergency department. I do feel she is stable for discharge with outpatient follow-up with her primary care provider regarding the mildly elevated TSH and elevated heart rate. Patient is instructed to avoid stimulants, stay hydrated, return to the emergency department with worsening or changing symptoms. Undiagnosed new problem with uncertain prognosis? @ -No Drug Therapy requiring intensive monitoring for toxicity (Heparin, Nitro, Insulin, Cardizem)? @ -No Were any procedures done? @ -No Diagnosis/symptom? @ -[Tachycardia Acute, or Chronic, or Acute on Chronic? @ -Acute Uncomplicated (without systemic symptoms) or Complicated (systemic symptoms)? @ -Default Side effects of treatment? @ -No Exacerbation, Progression, or Severe Exacerbation? @ -No Poses a threat to life or bodily function? How? (Chest pain, USA, IA, pneumonia, PE, COPD, DKA, ARF, appy, cholecystitis, CVA, Diverticulitis, Homicidal, Suicidal, threat to staff... and all critical care pts) @Low risk at this time (Jonny Meza) - Lab Data Lab Results 03/12/24 03/12/24 03/12/24 Range/Units 19:11 19:11 19:11 WBC 6.9 (3.8-10.6) k/uL RBC 4.29 (3.80-5.40) m/uL Hgb 13.8 (11.4-16.0) gm/dL Hct 41.7 (34.0-46.0) % MCV 97.3 (80.0-100.0) fL MCH 32.1 (25.0-35.0) pg MCHC 33.0 (31.0-37.0) g/dL RDW 11.9 (11.5-15.5) % Plt Count 232 (150-450) k/uL MPV 8.3 Neutrophils % 78 % Lymphocytes % 16 % Monocytes % 4 % Eosinophils % 1 % Basophils % 0 % Neutrophils # 5.4 (1.3-7.7) k/uL Lymphocytes # 1.1 (1.0-4.8) k/uL Monocytes # 0.3 (0-1.0) k/uL Eosinophils # 0.1 (0-0.7) k/uL Basophils # 0.0 (0-0.2) k/uL PT 11.6 (10.0-12.5) sec INR 1.1 (<1.2) APTT 25.8 (22.0-30.0) sec D-Dimer (<0.60) mg/L FEU Sodium (137-145) mmol/L Potassium (3.5-5.1) mmol/L Chloride (98-107) mmol/L Carbon Dioxide (22-30) mmol/L Anion Gap mmol/L BUN (7-17) mg/dL Creatinine (0.52-1.04) mg/dL Est GFR (CKD-EPI)AfAm (>60 ml/min/1.73 sqM) Est GFR (CKD-EPI)NonAf (>60 ml/min/1.73 sqM) Glucose (74-99) mg/dL Calcium (8.4-10.2) mg/dL Magnesium (1.6-2.3) mg/dL Total Bilirubin (0.2-1.3) mg/dL AST (14-36) U/L ALT (4-34) U/L Alkaline Phosphatase (38-126) U/L Troponin I (0.000-0.034) ng/mL Total Protein (6.3-8.2) g/dL Albumin (3.5-5.0) g/dL TSH (0.465-4.680) mIU/L HCG, Quant mIU/mL Urine Color Colorless Urine Appearance Clear (Clear) Urine pH 5.5 (5.0-8.0) Ur Specific [place] 1.009 (1.001-1.035) Urine Protein Negative (Negative) Urine Glucose (UA) Negative (Negative) Urine Ketones 2+ H (Negative) Urine Blood Negative (Negative) Urine Nitrite Negative (Negative) Urine Bilirubin Negative (Negative) Urine Urobilinogen <2.0 (<2.0) mg/dL Ur Leukocyte Esterase Negative (Negative) Urine HCG, Qual (Not Detectd) Urine Opiates Screen Not Detected (NotDetected) Ur Oxycodone Screen Not Detected (NotDetected) Urine Methadone Screen Not Detected (NotDetected) Ur Barbiturates Screen Not Detected (NotDetected) U Tricyclic Antidepress Not Detected (NotDetected) Ur Phencyclidine Scrn Not Detected (NotDetected) Ur Amphetamines Screen Not Detected (NotDetected) U Methamphetamines Scrn Not Detected (NotDetected) U Benzodiazepines Scrn Not Detected (NotDetected) Urine Cocaine Screen Not Detected (NotDetected) U Marijuana (THC) Screen Not Detected (NotDetected) 03/12/24 03/12/24 03/12/24 Range/Units 19:11 19:11 19:11 WBC (3.8-10.6) k/uL RBC (3.80-5.40) m/uL Hgb (11.4-16.0) gm/dL Hct (34.0-46.0) % MCV (80.0-100.0) fL MCH (25.0-35.0) pg MCHC (31.0-37.0) g/dL RDW (11.5-15.5) % Plt Count (150-450) k/uL MPV Neutrophils % % Lymphocytes % % Monocytes % % Eosinophils % % Basophils % % Neutrophils # (1.3-7.7) k/uL Lymphocytes # (1.0-4.8) k/uL Monocytes # (0-1.0) k/uL Eosinophils # (0-0.7) k/uL Basophils # (0-0.2) k/uL PT (10.0-12.5) sec INR (<1.2) APTT (22.0-30.0) sec D-Dimer (<0.60) mg/L FEU Sodium 138 (137-145) mmol/L Potassium 3.8 (3.5-5.1) mmol/L Chloride 108 H (98-107) mmol/L Carbon Dioxide 20 L (22-30) mmol/L Anion Gap 10 mmol/L BUN 10 (7-17) mg/dL Creatinine 0.62 (0.52-1.04) mg/dL Est GFR (CKD-EPI)AfAm >90 (>60 ml/min/1.73 sqM) Est GFR (CKD-EPI)NonAf >90 (>60 ml/min/1.73 sqM) Glucose 100 H (74-99) mg/dL Calcium 9.6 (8.4-10.2) mg/dL Magnesium 2.1 (1.6-2.3) mg/dL Total Bilirubin 1.0 (0.2-1.3) mg/dL AST 22 (14-36) U/L ALT 13 (4-34) U/L Alkaline Phosphatase 48 (38-126) U/L Troponin I <0.012 (0.000-0.034) ng/mL Total Protein 7.6 (6.3-8.2) g/dL Albumin 4.8 (3.5-5.0) g/dL TSH 4.990 H (0.465-4.680) mIU/L HCG, Quant mIU/mL Urine Color Urine Appearance (Clear) Urine pH (5.0-8.0) Ur Specific [place] (1.001-1.035) Urine Protein (Negative) Urine Glucose (UA) (Negative) Urine Ketones (Negative) Urine Blood (Negative) Urine Nitrite (Negative) Urine Bilirubin (Negative) Urine Urobilinogen (<2.0) mg/dL Ur Leukocyte Esterase (Negative) Urine HCG, Qual Not Detected (Not Detectd) Urine Opiates Screen (NotDetected) Ur Oxycodone Screen (NotDetected) Urine Methadone Screen (NotDetected) Ur Barbiturates Screen (NotDetected) U Tricyclic Antidepress (NotDetected) Ur Phencyclidine Scrn (NotDetected) Ur Amphetamines Screen (NotDetected) U Methamphetamines Scrn (NotDetected) U Benzodiazepines Scrn (NotDetected) Urine Cocaine Screen (NotDetected) U Marijuana (THC) Screen (NotDetected) 03/12/24 03/12/24 Range/Units 19:11 19:11 WBC (3.8-10.6) k/uL RBC (3.80-5.40) m/uL Hgb (11.4-16.0) gm/dL Hct (34.0-46.0) % MCV (80.0-100.0) fL MCH (25.0-35.0) pg MCHC (31.0-37.0) g/dL RDW (11.5-15.5) % Plt Count (150-450) k/uL MPV Neutrophils % % Lymphocytes % % Monocytes % % Eosinophils % % Basophils % % Neutrophils # (1.3-7.7) k/uL Lymphocytes # (1.0-4.8) k/uL Monocytes # (0-1.0) k/uL Eosinophils # (0-0.7) k/uL Basophils # (0-0.2) k/uL PT (10.0-12.5) sec INR (<1.2) APTT (22.0-30.0) sec D-Dimer 0.21 (<0.60) mg/L FEU Sodium (137-145) mmol/L Potassium (3.5-5.1) mmol/L Chloride (98-107) mmol/L Carbon Dioxide (22-30) mmol/L Anion Gap mmol/L BUN (7-17) mg/dL Creatinine (0.52-1.04) mg/dL Est GFR (CKD-EPI)AfAm (>60 ml/min/1.73 sqM) Est GFR (CKD-EPI)NonAf (>60 ml/min/1.73 sqM) Glucose (74-99) mg/dL Calcium (8.4-10.2) mg/dL Magnesium (1.6-2.3) mg/dL Total Bilirubin (0.2-1.3) mg/dL AST (14-36) U/L ALT (4-34) U/L Alkaline Phosphatase (38-126) U/L Troponin I (0.000-0.034) ng/mL Total Protein (6.3-8.2) g/dL Albumin (3.5-5.0) g/dL TSH (0.465-4.680) mIU/L HCG, Quant <2.4 mIU/mL Urine Color Urine Appearance (Clear) Urine pH (5.0-8.0) Ur Specific [place] (1.001-1.035) Urine Protein (Negative) Urine Glucose (UA) (Negative) Urine Ketones (Negative) Urine Blood (Negative) Urine Nitrite (Negative) Urine Bilirubin (Negative) Urine Urobilinogen (<2.0) mg/dL Ur Leukocyte Esterase (Negative) Urine HCG, Qual (Not Detectd) Urine Opiates Screen (NotDetected) Ur Oxycodone Screen (NotDetected) Urine Methadone Screen (NotDetected) Ur Barbiturates Screen (NotDetected) U Tricyclic Antidepress (NotDetected) Ur Phencyclidine Scrn (NotDetected) Ur Amphetamines Screen (NotDetected) U Methamphetamines Scrn (NotDetected) U Benzodiazepines Scrn (NotDetected) Urine Cocaine Screen (NotDetected) U Marijuana (THC) Screen (NotDetected) Disposition <Kendrick Arriola - Last Filed: 03/12/24 20:18> Is patient prescribed a controlled substance at d/c from ED?: No Time of Disposition: 22:50 <Jonny Meza - Last Filed: 03/12/24 22:59> Clinical Impression: Palpitations, Tachycardia Disposition: HOME SELF-CARE Condition: Fair Instructions (If sedation given, give patient instructions): Heart Palpitations (ED), Tachycardia (ED) Referrals: Bowen Carter MD [REFERRING] - 1-2 days Getachew Morel MD [STAFF PHYSICIAN] - 1-2 days
[2024-03-12] MEDS: SODIUM CHLORIDE 0.9% 1,000 ML IV ONE (21:16)
--- NOTE | 2024-03-12 22:29 | US ---
EXAMINATION TYPE: US gallbladder DATE OF EXAM: 03/12/2024 COMPARISON: NONE CLINICAL INDICATION: Female, 23 years old with history of ruq pain; Patient states RUQ/ chest pain. N o other symptoms. No abdominal surgeries TECHNIQUE: Multiple sonographic images of the right upper quadrant are obtained. FINDINGS: EXAM MEASUREMENTS: Liver Length: 14.2 cm Gallbladder Wall: 0.2cm CBD: 0.3cm Right Kidney: 9.4 x 4.2 x 5.7cm VENEER SPLICER NOTES:Slightly limited due to midline gas Pancreas: Visualized portions appear wnl, tail obscured by gas Liver: wnl Gallbladder: wall wnl. no stones, hydrops, or pericholecystic fluid seen today Evidence for sonographic Waggoner's sign: No CBD: wnl Right Kidney: There is a 1.6 x 1.2 x 2.7cm anechoic area seen within the mid/medial aspect of the ri ght kidney. This may be some mild right hydronephrosis. IMPRESSION: 1. Mild right hydronephrosis.
[2024-03-12] MEDS: ACETAMINOPHEN TAB 500 MG TAB PO STA ×2 (23:14→23:22)
[2024-03-12] MEDS: SODIUM CHLORIDE 0.9% 500 ML 500 ML IV ONE (23:21)
[2024-03-12 23:25] VITALS: BP 126/85; PULSE 97
== END 2024-03-12 23:30 | disposition home or self-care (01) ==
LOC: EC 18:43
DX: R00.2 Palpitations (principal); R00.0 Tachycardia, unspecified; N13.30 Unspecified hydronephrosis
CPT/HCPCS: 36415; 71046; 76705; 80053; 80306; 81003; 81025; 83735; 84439; 84443; 84484; 84702; 85025; 85379; 85610; 85730; 93005; 96360; 96361; 99285